=== PATIENT | female | born 1950 | race Caucasian/White ===

== ENCOUNTER → 2017-02-12 | Outpatient (CLI) | payer MEDICARE, OTHER | END | disposition home or self-care (01) | LOC: GMAB 11:41 | PROVIDERS: ATTEND Family Medicine | DX: I10 Essential (primary) hypertension (principal) ==

== ENCOUNTER → 2017-03-11 | Outpatient (CLI) | payer MEDICARE | END | disposition home or self-care (01) | LOC: GMAB 16:37 | PROVIDERS: ATTEND Family Medicine | DX: R30.0 Dysuria (principal) ==

== ENCOUNTER → 2017-03-25 | Outpatient (CLI) | payer MEDICARE, OTHER | END | disposition home or self-care (01) | LOC: GMAB 16:40 | PROVIDERS: ATTEND Family Medicine | DX: R30.0 Dysuria (principal) ==

== ENCOUNTER 2018-02-05 21:06 | Emergency (ER) | payer MEDICARE, OTHER ==
[2018-02-05] MEDS ORDERED: ALUMINUM & MAGNESIUM HYDROXIDE 30 ML UD PO ONE (21:35)
[2018-02-05] MEDS ORDERED: SODIUM CHLORIDE 0.9% 1000ML 1,000 ML IVS ONE (21:35)
[2018-02-05] MEDS ORDERED: ONDANSETRON ODT 8 MG TAB SL ONE (21:35)
[2018-02-05] MEDS ORDERED: FAMOTIDINE 20 MG TAB PO ONE (21:35)
--- NOTE | 2018-02-05 22:34 | RAD ---
EXAM DESCRIPTION: Abdomen Series CLINICAL HISTORY: n/v 2 days COMPARISON: None. FINDINGS: Single view of the chest with upright and supine views of the abdomen. The cardiomediastinal silhouette has normal size and contour. No consolidation, pneumothorax, or pleural effusion. Left chest wall postoperative changes. No free intraperineal air. Scattered loops of nondilated large or small bowel without evidence of obstruction. No definite organomegaly identified. No abnormal calcifications. No acute osseous abnormalities identified. IMPRESSION: 1. No acute pulmonary process. Nonobstructive bowel gas pattern. Electronically signed by: Tej Gutierrez 02/05/2018 10:32 PM CDT
[2018-02-05] MEDS ORDERED: CIPROFLOXACIN 500 MG TAB PO ONE (22:59)
[2018-02-05] MEDS ORDERED: cefTRIAXone SODIUM 1 GM in SODIUM CHL 0.9% 50ML MIN-BAG+ 50 ML IVPB ONE (22:59)
[2018-02-05] MEDS ORDERED: cefTRIAXone SODIUM 1 GM VIAL ONE (23:15)
[2018-02-05] MEDS ORDERED: SODIUM CHL 0.9% 50ML MIN-BAG+ 50 ML IVPB ONE (23:15)
[2018-02-05] MEDS ORDERED: PROMETHAZINE HCL 25 MG TAB PO ONE (23:23)
--- NOTE | 2018-02-05 23:28 | ED.PDOC ---
History of Present Illness - General Chief Complaint: GI Problem Time Seen by Provider: 02/05/18 21:07 Source: patient Exam Limitations: no limitations - History of Present Illness Initial Comments: The patient is 67-year-old female presenting to the emergency room secondary to 24-36 hours as nausea and vomiting as well as start of urinary symptoms of frequency and dysuria as well as some pharyngitis. had just come back from [place]. No blood or bile in the vomitus. No diarrhea. No constipation. No abdominal pain. No history of any pancreatitis or gallbladder problems. Timing/Duration: 24 hours Severity: moderate Improving Factors: nothing Worsening Factors: nothing Associated Symptoms: loss of appetite, malaise, nausea/vomiting Home Medications: Ambulatory Orders Ciprofloxacin [Cipro] 500 mg PO BID #10 tab 02/05/18 Famotidine 20 mg PO BID #30 tab 02/05/18 Ondansetron [Zofran Odt] 4 mg PO Q4H PRN #10 tab 02/05/18 Review of Systems - Review of Systems Constitutional: States: malaise EENTM: States: throat pain Respiratory: States: no symptoms reported Cardiology: States: no symptoms reported Gastrointestinal/Abdominal: States: nausea, vomiting Genitourinary: States: dysuria, frequency Musculoskeletal: States: no symptoms reported Skin: States: no symptoms reported Neurological: States: no symptoms reported Endocrine: States: no symptoms reported All other Systems: No Change from Baseline Physical Exam - Physical Exam General Appearance: Alert, Comfortable, No apparent distress Eye Exam: bilateral normal Ears, Nose, Throat: hearing grossly normal, pharyngeal erythema Neck: full range of motion, supple Respiratory: lungs clear, normal breath sounds, no respiratory distress, no accessory muscle use Cardiovascular/Chest: normal peripheral pulses, regular rate, rhythm, no edema Peripheral Pulses: radial,right: 2+, radial,left: 2+, dorsalis pedis,right: 2+, dorsalis pedis,left: 2+ Gastrointestinal/Abdominal: non tender, soft Rectal Exam: deferred Back Exam: normal inspection, no CVA tenderness, no vertebral tenderness Extremity: normal range of motion, non-tender, normal inspection, no pedal edema , no calf tenderness, normal capillary refill Neurologic: product safety consultant II-XII nml as tested, alert, normal mood/affect, oriented x 3 Skin Exam: normal color Progress - Progress Progress: 02/05/18 23:29 the patient is a 67-year-old female presenting with what appears to be a viral syndrome consisting primarily of pharyngitis and nausea and vomiting. She has received a liter of IV fluids as well as some nausea and stomach medications. She is feeling a little bit better from that standpoint. 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 She needs to keep herself hydrated and maintain a bland diet. Tylenol can be used to control any low-grade fever and help with pharyngitis discomfort. Additionally the patient does have a urinary tract infection. The urine will be cultured. She has received a dose of Rocephin and oral ciprofloxacin here tonight. She'll be placed on ciprofloxacin twice daily for 5 days. She does need a test of cure with her primary care doctor somewhere between 5 and 7 days from now. Urine culture can be followed as well there. ER warnings were given for any significant worsening. - Results/Orders Results/Orders: 02/05/18 21:35 URINE CULTURE W/COLONY COUNT Stat 02/05/18 23:00 STREP A SCREEN CULTURE Stat negativerapid test Laboratory Results - last 24 hr 02/05/18 02/05/18 21:35 23:00 Urine Color Yellow Urine Appearance Clear Urine pH 7.5 Ur Specific [place] 1.020 Urine Protein Trace Urine Glucose (UA) Negative Urine Ketones >=160 Urine Blood Trace-intact H Urine Nitrite Negative Urine Bilirubin Small H Urine Urobilinogen 1.0 Ur Leukocyte Esterase Small H Urine RBC 1-3 Urine WBC 20-30 H Ur Epithelial Cells 1-3 Urine Bacteria 2+ H Urine Mucus Moderate Group A Strep Rapid Negative cute abdominal series appears benign. Departure - Departure Clinical Impression: Viral syndrome Urinary tract infection Qualifiers: Urinary tract infection type: acute cystitis Hematuria presence: without hematuria Qualified Code(s): N30.00 - Acute cystitis without hematuria Disposition: Discharge to Home or Self Care Condition: Fair Departure Forms: ED Discharge - Pt. Copy, Patient Portal Self Enrollment Instructions: DI for Gastritis, DI for Viral Pharyngitis, DI for Acute Cystitis Diet: bland diet Activity: increase activity as tolerated Referrals: Callum Whitney MD [Primary Care Provider] - 1-2 Weeks Prescriptions: Ciprofloxacin [Cipro] 500 mg PO BID #10 tab Famotidine 20 mg PO BID #30 tab Ondansetron [Zofran Odt] 4 mg PO Q4H PRN #10 tab PRN Reason: Vomiting Home Medications: Ambulatory Orders Ciprofloxacin [Cipro] 500 mg PO BID #10 tab 02/05/18 Famotidine 20 mg PO BID #30 tab 02/05/18 Ondansetron [Zofran Odt] 4 mg PO Q4H PRN #10 tab 02/05/18 Additional Instructions: the patient is a 67-year-old female presenting with what appears to be a viral syndrome consisting primarily of pharyngitis and nausea and vomiting. She has received a liter of IV fluids as well as some nausea and stomach medications. She is feeling a little bit better from that standpoint. 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 She needs to keep herself hydrated and maintain a bland diet. Tylenol can be used to control any low-grade fever and help with pharyngitis discomfort. Additionally the patient does have a urinary tract infection. The urine will be cultured. She has received a dose of Rocephin and oral ciprofloxacin here tonight. She'll be placed on ciprofloxacin twice daily for 5 days. She does need a test of cure with her primary care doctor somewhere between 5 and 7 days from now. Urine culture can be followed as well there. ER warnings were given for any significant worsening.
[2018-02-06 00:04] VITALS: BP 140/69; TEMP 98.8; O2SAT 100
== END 2018-02-05 23:58 | disposition home or self-care (01) ==
LOC: ER 21:06
DX: N30.00 Acute cystitis without hematuria (principal); B34.9 Viral infection, unspecified
CPT/HCPCS: 74019; 81001; 87070; 87086; 87880; J0696; J7030; J7050; Q0169

== ENCOUNTER → 2018-02-13 | Outpatient (CLI) | payer MEDICARE, OTHER | LOC: GMAB 10:50 | PROVIDERS: ATTEND Family Medicine | DX: I10 Essential (primary) hypertension (principal) ==

== ENCOUNTER → 2018-03-11 | Outpatient (CLI) | payer MEDICARE, OTHER ==
--- NOTE | 2018-03-12 08:30 | US ---
THYROID ULTRASOUND CLINICAL INFORMATION: Thyroid nodule TECHNIQUE: Real-time ultrasonography was obtained of the thyroid gland and outbound sales representative images were recorded. COMPARISON: None FINDINGS: Thyroid size: Right lobe of the thyroid gland measures 4.3 x 1.7 x 1.2 cm. Left lobe of the thyroid gland measures 4.1 x 0.9 x 1.4 cm. Thyroid isthmus measures 0.3 cm. Texture: Relatively homogenous. Estimated total number of nodules >/=1 cm: 1 Number of spongiform nodules >/=2 cm not described below (TR1): 0 Number of mixed cystic and solid nodules >/=1.5 cm not described below (TR2): 0 Nodule #: #: 1: Maximum size: 1.0 cm; All dimensions 1.0 x 0.7 x 0.6 cm Location: right; mid Composition: solid/almost completely solid (2) Echogenicity: hypoechoic (2) Shape: not [id number] (0) Margins: smooth (0) Echogenic foci: none (0) ACR TI-RADS total points: 4. ACR TI-RADS risk category: TR4 (4-6 points) ACR TI-RADS recommendation: Follow-up ultrasound in 1 year Nodule #: #: 2: Maximum size: 0.6 cm; All dimensions 0.6 x 0.3 x 0.5 cm Location: right; upper Composition: solid/almost completely solid (2) Echogenicity: hypoechoic (2) Shape: not [id number] (0) Margins: smooth (0) Echogenic foci: none (0) ACR TI-RADS total points: 4. ACR TI-RADS risk category: TR4 (4-6 points) ACR TI-RADS recommendation: No further follow-up Nodule #: #: 3: Maximum size: 0.8 cm; All dimensions 0.8 x 0.5 x 0.8 cm Location: left; upper Composition: solid/almost completely solid (2) Echogenicity: hypoechoic (2) Shape: not llurbe-buii-wrdl (0) Margins: smooth (0) Echogenic foci: none (0) Inspissated colloid noted. ACR TI-RADS total points: 4. ACR TI-RADS risk category: TR4 (4-6 points) ACR TI-RADS recommendation: No further follow-up IMPRESSION: 1. Multinodular thyroid gland. Follow-up ultrasound in one year to reevaluate the nodule in the mid aspect of the right lobe is recommended. ACR TI-RADS recommendations: TR5 (>/=7 points) - FNA if >/=1 cm, follow-up if 0.5 - 0.9 cm every year for 5 years TR4 (4-6 points) - FNA if >/=1.5 cm, follow-up if 1 - 1.4 cm in 1, 2, 3 and 5 years TR3 (3 points) - FNA if >/=2.5 cm, follow -up if 1.5 - 2.4 cm in 1, 3 and 5 years TR2 (2 points) and TR1 (0 points) - No FNA or follow-up * ACR TI-RADS recommends that no more than two nodules with the highest ACR TI-RADS total point should be biopsied and no more than four nodules should be followed. Electronically signed by: Ralph Jimenez MD 03/12/2018 8:28 AM CDT
== END ==
LOC: US 14:00
PROVIDERS: ATTEND Family Medicine
DX: E04.1 Nontoxic single thyroid nodule (principal)

== ENCOUNTER → 2018-03-24 | Outpatient (CLI) | payer MEDICARE, OTHER | LOC: GMAE 14:54 | PROVIDERS: ATTEND Family Medicine | DX: E04.1 Nontoxic single thyroid nodule (principal) ==

== ENCOUNTER 2018-09-12 05:40 | Emergency (ER) | payer MEDICARE, OTHER ==
[2018-09-12 06:03] VITALS: TEMP 99.4
[2018-09-12] MEDS ORDERED: SODIUM CHLORIDE 0.9% 1000ML 1,000 ML IVS ONE (06:15)
--- NOTE | 2018-09-12 06:18 | ED.PDOC ---
History of Present Illness - General Source: patient Exam Limitations: no limitations - History of Present Illness Initial Comments: the patient is a 7-year-old female presenting to emergency room after a syncopal episode this morning after she got up out of bed. She apparently passed out and did hit her head on the floor. No laceration. She does not remember passing out or the fall. She had been feeling poorly prior for about 3 days. Questionable fevers. Symptoms started with a sore throat and a little bit of a runny nose. She has had some body aches. She did have some nausea prior but no vomiting prior to the syncopal episode.after the syncopal episode she threw up 3 or 4 times. No real abdominal pain currently. No chest pain. No palpitations. No history of any congestive heart failure. No history of recurrent syncopal episodes. She had breast cancer more than 13 years ago. Timing/Duration: unsure Severity: moderate Improving Factors: nothing Worsening Factors: movement Associated Symptoms: headaches, loss of appetite, malaise, nausea/vomiting, syncope, weakness <Nick Oquendo L - Last Filed: 09/12/18 06:15> <Tomas Ash - Last Filed: 09/12/18 10:58> - General Chief Complaint: Headache Stated Complaint: fell and hit head Time Seen by Provider: 09/12/18 06:04 - History of Present Illness Allergies/Adverse Reactions: Allergies NO KNOWN ALLERGY Allergy (Verified 09/12/18 06:17) Home Medications: Ambulatory Orders Ciprofloxacin [Cipro] 500 mg PO BID #10 tab 02/05/18 Famotidine 20 mg PO BID #30 tab 02/05/18 Ondansetron [Zofran Odt] 4 mg PO Q4H PRN #10 tab 02/05/18 Acetamin W/Cod #3 Tab [Tylenol w/CODEINE #3] 1 ea PO Q4HR PRN #20 tab 09/12/18 Cefuroxime Axetil [Ceftin] 500 mg PO Q12H 10 Days #20 tablet 09/12/18 Oseltamivir Capsule [Tamiflu] 75 mg PO BID 5 Days #10 capsule 09/12/18 Review of Systems - Review of Systems Constitutional: States: malaise, weakness EENTM: States: nose congestion, throat pain Respiratory: States: no symptoms reported Cardiology: States: syncope Gastrointestinal/Abdominal: States: nausea, vomiting Genitourinary: States: no symptoms reported Musculoskeletal: States: no symptoms reported Skin: States: see HPI Neurological: States: no symptoms reported Endocrine: States: no symptoms reported All other Systems: No Change from Baseline <Arnaud Oquendoy Divya - Last Filed: 09/12/18 06:15> Past Medical History (General) - Patient Medical History Hx Seizures: No Hx Stroke: No Hx Dementia: No Hx Congestive Heart Failure: No Hx Pacemaker: No Hx Hypertension: Yes Hx Thyroid Disease: No Hx Diabetes: No Hx Gastroesophageal Reflux: No Hx Renal Disease: No Hx Cancer: Yes - breast Hx of HIV: No Hx MRSA: No Surgical History: cancer surgery, other - Vaccination History Hx Tetanus, Diphtheria Vaccination: Yes Hx Influenza Vaccination: Yes Hx Pneumococcal Vaccination: Yes - Social History Hx Tobacco Use: Yes - social Hx Alcohol Use: No - Female History Patient is a Female of Child Bearing Age (10 -59 yrs old): No Patient : No <Nick Oquendo - Last Filed: 09/12/18 06:15> Family Medical History - Family History Grandparents Hx Family Diabetes: Yes <JereNick - Last Filed: 09/12/18 06:15> Physical Exam - Physical Exam General Appearance: Alert, Comfortable, No apparent distress Eye Exam: bilateral normal Ears, Nose, Throat: hearing grossly normal, nasal congestion, pharyngeal erythema Neck: full range of motion, supple Respiratory: lungs clear, normal breath sounds, no respiratory distress, no accessory muscle use Cardiovascular/Chest: normal peripheral pulses, regular rate, rhythm, no edema Peripheral Pulses: radial,right: 2+, radial,left: 2+, dorsalis pedis,right: 2+, dorsalis pedis,left: 2+ Gastrointestinal/Abdominal: non tender, soft Rectal Exam: deferred Back Exam: no CVA tenderness, no vertebral tenderness Extremity: normal range of motion, non-tender, normal inspection, no pedal edema Neurologic: scrap iron cutter II-XII nml as tested, alert, normal mood/affect, oriented x 3 Skin Exam: normal color - scalp hematoma Comments: Vital Signs - 24 hr 09/12/18 05:47 Temperature 99.4 F Pulse Rate [ 94 H left] Respiratory 18 Rate Blood Pressure 122/66 [left] O2 Sat by Pulse 94 L Oximetry <Nick Oquendo - Last Filed: 09/12/18 06:15> Progress - Progress Progress: 09/12/18 06:19 the patient is 67-year-old female presenting to the emergency room due to syncope from an uncertain source. The patient had subsequent nausea and vomiting which may or may not be related to the head trauma from the fall. Laboratory work is being sent off. She will receive an acute abdominal series as well as a head CT. She has been placed on telemetry monitoring and a set of tilt vital signs are being obtained. She will receive a liter of IV fluids. She is being tested for strep and flu. Dr. Ash to assume care. <Nick Oquendo Divya - Last Filed: 09/12/18 06:15> - Results/Orders Results/Orders: 09/12/18 06:14 Telemetry .CONTINUOUS Vital Signs-Tilt PRN 09/12/18 06:15 EKG STAT 09/12/18 07:05 STREP A SCREEN CULTURE Stat 09/13/18 06:15 EKG STAT Laboratory Results - last 24 hr 09/12/18 09/12/18 09/12/18 06:20 06:20 06:20 WBC 10.2 RBC 4.58 Hgb 13.9 Hct 41.6 MCV 90.7 MCH 30.2 MCHC 33.3 RDW 13.4 Plt Count 181 MPV 9.5 Absolute Neuts (auto) 8.70 H Absolute Lymphs (auto) 0.80 L Absolute Monos (auto) 0.60 Absolute Eos (auto) 0.00 Absolute Basos (auto) 0.10 Neutrophils % 85.0 H Lymphocytes % 7.9 L Monocytes % 5.7 Eosinophils % 0.2 L Basophils % 1.2 D-Dimer, Quantitative Sodium 139 Potassium 4.3 Chloride 109 Carbon Dioxide 22 Anion Gap 12.3 BUN 18 Creatinine 0.74 BUN/Creatinine Ratio 24.3 H Random Glucose 126 H Serum Osmolality 281.0 Lactic Acid 1.8 Calcium 8.6 Magnesium 2.0 Total Bilirubin 0.5 AST 28 ALT 23 Alkaline Phosphatase 53 Creatine Kinase 45 CK-MB (CK-2) 0.6 CK-MB (CK-2) % Not Reportable Troponin I < 0.02 B-Natriuretic Peptide 14.1 Serum Total Protein 6.8 Albumin 3.9 Globulin 2.9 Albumin/Globulin Ratio 1.3 Lipase 35 TSH 1.92 Urine Color Urine Appearance Urine pH Ur Specific [place] Urine Protein Urine Glucose (UA) Urine Ketones Urine Blood Urine Nitrite Urine Bilirubin Urine Urobilinogen Ur Leukocyte Esterase Urine RBC Urine WBC Ur Epithelial Cells Urine Bacteria Hyaline Casts Group A Strep Rapid 09/12/18 09/12/18 09/12/18 06:50 07:05 10:30 WBC RBC Hgb Hct MCV MCH MCHC RDW Plt Count MPV Absolute Neuts (auto) Absolute Lymphs (auto) Absolute Monos (auto) Absolute Eos (auto) Absolute Basos (auto) Neutrophils % Lymphocytes % Monocytes % Eosinophils % Basophils % D-Dimer, Quantitative 12.54 H* Sodium Potassium Chloride Carbon Dioxide Anion Gap BUN Creatinine BUN/Creatinine Ratio Random Glucose Serum Osmolality Lactic Acid Calcium Magnesium Total Bilirubin AST ALT Alkaline Phosphatase Creatine Kinase CK-MB (CK-2) CK-MB (CK-2) % Troponin I B-Natriuretic Peptide Serum Total Protein Albumin Globulin Albumin/Globulin Ratio Lipase TSH Urine Color Yellow Urine Appearance Clear Urine pH 7.0 Ur Specific [place] 1.015 Urine Protein Negative Urine Glucose (UA) Negative Urine Ketones Negative Urine Blood Negative Urine Nitrite Negative Urine Bilirubin Negative Urine Urobilinogen 0.2 Ur Leukocyte Esterase Negative Urine RBC 1-3 Urine WBC 1-3 Ur Epithelial Cells 1-3 Urine Bacteria Rare Hyaline Casts 1-3 Group A Strep Rapid Negative Discuss all test result findings with patient in the presence of her . - EKG/XRAY/CT EKG: Sinus, no ST T wave changes Comments: HR-86 <Tomas Ash - Last Filed: 09/12/18 10:58> Departure <Nick Oquendo L - Last Filed: 09/12/18 06:15> - Departure Time of Disposition: 10:51 <Tomas Ash - Last Filed: 09/12/18 10:58> - Departure Clinical Impression: Influenza A, D-dimer, elevated, History of left breast cancer Syncope Qualifiers: Syncope type: unspecified Qualified Code(s): R55 - Syncope and collapse Concussion Qualifiers: Encounter type: initial encounter Loss of consciousness presence/duration: with LOC of 30 min or less Qualified Code(s): S06.0X1A - Concussion with loss of consciousness of 30 minutes or less, initial encounter Maxillary sinusitis, acute Qualifiers: Recurrence: not specified as recurrent Qualified Code(s): J01.00 - Acute maxillary sinusitis, unspecified Disposition: Discharge to Home or Self Care Condition: Fair Departure Forms: ED Discharge - Pt. Copy, Patient Portal Self Enrollment Instructions: DI for Headache, Syncope (Fainting), Syncope (Fainting) (DC) Referrals: Callum Whitney MD [Primary Care Provider] - 1-2 Weeks Prescriptions: Acetamin W/Cod #3 Tab [Tylenol w/CODEINE #3] 1 ea PO Q4HR PRN #20 tab PRN Reason: Pain Cefuroxime Axetil [Ceftin] 500 mg PO Q12H 10 Days #20 tablet Oseltamivir Capsule [Tamiflu] 75 mg PO BID 5 Days #10 capsule Home Medications: Ambulatory Orders Ciprofloxacin [Cipro] 500 mg PO BID #10 tab 02/05/18 Famotidine 20 mg PO BID #30 tab 02/05/18 Ondansetron [Zofran Odt] 4 mg PO Q4H PRN #10 tab 02/05/18 Acetamin W/Cod #3 Tab [Tylenol w/CODEINE #3] 1 ea PO Q4HR PRN #20 tab 09/12/18 Cefuroxime Axetil [Ceftin] 500 mg PO Q12H 10 Days #20 tablet 09/12/18 Oseltamivir Capsule [Tamiflu] 75 mg PO BID 5 Days #10 capsule 09/12/18 Additional Instructions: follow up with breast cancer surgeon who performed your breast cancer surgery;Also make appointment with your primary Md for recheck;Return to emergency room as needed
--- NOTE | 2018-09-12 07:07 | CT ---
EXAM DESCRIPTION: Head CLINICAL HISTORY: 67 years, Female, syncope COMPARISON: None TECHNIQUE: Head CT was performed without IV contrast. This exam was performed according to our departmental dose-optimization program, which includes automated exposure control, adjustment of the mA and/or kV according to patient size and/or use of iterative reconstruction technique. FINDINGS: No acute intracranial hemorrhage. No midline shift or other mass effect. The ventricles and basilar cisterns are well maintained. No posterior fossa lesion. Mild chronic ischemic changes are present in the periventricular white matter without cortical infarct or intracranial mass. Prominent soft tissue swelling and cephalohematoma over the right frontoparietal region superiorly near the calvarial apex. No calvarial fracture. Small amount of probably appearing fluid in the right maxillary sinus. Visual paranasal sinuses and orbits are otherwise unremarkable. IMPRESSION: Cephalohematoma near the calvarial apex right of midline without calvarial fracture or acute intracranial abnormality. Right maxillary sinusitis, possibly acute. Electronically signed by: Tyshawn Cobb MD 09/12/2018 7:06 AM [employer]
--- NOTE | 2018-09-12 09:14 | US ---
EXAM DESCRIPTION: Carotid Duplex: ULTRASOUND. CLINICAL HISTORY: 67 years Female syncope COMPARISON: CT scan of the head earlier today. TECHNIQUE: Transcutaneous scanning utilizing mccarthy-scale and Doppler modes to evaluate the bilateral carotid systems and vertebral arteries. Percentage of diameter of stenosis or no stenosis recorded will be based upon NASCET criteria. FINDINGS: Peak systolic/end diastolic (CM-Sec) CCA Right 92/25 Left 107/23. ICA Right proximal 70/22, mid 81/29. Left proximal 78/28, Distal 90/29. Vertebral Right 58/11 Left 69/12. ECA (PS Only) Right 94 left 97. ICA/CCA peak systolic ratio: Right 0.9 Left 0.8 ICA/CCA end diastolic ratio: Right 1.1 Left 1.3 Vertebral arteries: antegrade flow. Comments Comments: Minimal atherosclerotic plaque bilaterally. Spectral broadening bilateral ICAs. IMPRESSION: 1. Doppler evaluation of the bilateral carotid systems and vertebral arteries shows no hemodynamically significant stenoses. 2. No significant amount of plaque seen in the carotid arteries bilaterally. Bilateral vertebral arteries showed antegrade-cephalad flow. Electronically signed by: Moises Mccann MD 09/12/2018 9:12 AM [facility]
--- NOTE | 2018-09-12 10:34 | CT ---
EXAM DESCRIPTION: CTA Chest: Computed Tomography. CLINICAL HISTORY: syncope/elevated d dimer COMPARISON: CT scan of the head and ultrasound Doppler of the carotids on this visit. TECHNIQUE: Spiral-axial scans at 2.5 x 2.5 mm intervals through the pulmonary arteries and chest after bolus infusion of IV contrast. Lung algorithm _1.25-mm axial reconstructions. Coronal and sagittal 2.0 Mm reconstructions. 10.0 mm PE oblique 3-D reformatted images. No adverse reactions. Total Exam DLP: 473.75 mGy-cm. This exam was performed according to our departmental CT dose-optimization program which includes automated exposure control, adjustment of the mA and/or kV according to patient size and/or use of iterative reconstruction technique; to reduce radiation dose to as low as reasonably achievable (ALARA). FINDINGS: Heart and great vessels: The pulmonary arterial system is well demonstrated with contrast material from the main pulmonary artery to the bilateral subsegmental pulmonary artery branches, with no filling defects. The distal pulmonary artery branches bilaterally are symmetric. No significant vessel calcification. Heart size borderline enlarged. Lungs and airways: Posterior pleural-based bulla and blebs abutting the superior segments of the upper lobes. Posterior dependent atelectasis abutting the subpleural lower lobes bilaterally. Minimal bilateral perihilar peribronchial wall thickening. No focal infiltrates, abnormal nodules, or masses bilaterally. Pleura and pleural spaces: Minimal thickening. No effusion or pneumothorax bilaterally. Mediastinum and hoang: Multiple posterior and inferior mediastinal lymph nodes, and bilateral hilar nodes, with short axis ranging from 7 mm to 1.3 cm. No calcifications. Soft tissues chest wall and base of neck: Mass versus scarring with spiculated margins and surgical clips which may represent a biopsy site in the posterior inferior left breast abutting the chest wall. Minimal loss of breast tissue. Multiple axillary surgical clips. No lymph node enlargement in the right axilla. Upper abdomen: No free fluid or free air included peritoneal.. Adrenal glands and spleen normal size. Subcapsular cyst in the liver 3.7 cm on the right and 1.7 cm on the left. Small sliding hiatal hernia. Osseous structures: Minimal spondylosis in the included thoracic spine. No lytic or blastic lesions. Minimal arthrosis in the bilateral glenohumeral joints. IMPRESSION: 1. CTA of the thorax showing no evidence for acute pulmonary embolus. 2. Enlarged lymph nodes in the mediastinum and hilum. This can be result of old versus acute inflammatory or infectious disease, or primary malignancy or metastatic disease. Minimal emphysematous changes in the subpleural lungs. No mass or infiltrate or effusion. Previous biopsy left breast with left axillary lymph node dissection. History of the left breast cancer? Consider nonemergent digital mammography bilaterally. 3. Hepatic cysts. 4. If neurological symptoms persist, and there is history of previous breast cancer, consider nonemergent MRI scan of the brain without and with gadolinium IV contrast. Electronically signed by: Moises Mccann MD 09/12/2018 10:32 AM [facility]
[2018-09-12 11:20] VITALS: BP 128/70; O2SAT 98
== END 2018-09-12 11:20 | disposition home or self-care (01) ==
LOC: ER 05:40
DX: S06.0X1A Concussion with loss of consciousness of 30 minutes or less, initial encounter (principal); R55 Syncope and collapse; J01.00 Acute maxillary sinusitis, unspecified; J10.1 Influenza due to other identified influenza virus with other respiratory manifestations; R79.89 Other specified abnormal findings of blood chemistry; S00.93XA Contusion of unspecified part of head, initial encounter; R11.2 Nausea with vomiting, unspecified; I10 Essential (primary) hypertension; Z87.891 Personal history of nicotine dependence; Z85.3 Personal history of malignant neoplasm of breast; Z79.899 Other long term (current) drug therapy; W18.39XA Other fall on same level, initial encounter; Y92.9 Unspecified place or not applicable
CPT/HCPCS: 36415; 70450; 71275; 80053; 81001; 82550; 82553; 83605; 83690; 83735; 83880; 84443; 84484; 85025; 85379; 87070; 87502; 87880; 93005; 93880; J7030

== ENCOUNTER 2020-08-22 09:28 | Emergency (ER) | payer MEDICARE, OTHER ==
--- NOTE | 2020-08-22 10:44 | ED.PDOC ---
History of Present Illness - General Chief Complaint: Skin/Abrasion/Tear Stated Complaint: Knot to posterior, lateral knee Time Seen by Provider: 08/22/20 10:41 Source: patient - History of Present Illness Initial Comments: 69-year-old female who presents with chief complaint of pain and redness to the left lower extremity. Onset of symptoms yesterday, no reported hx of injury or trauma. Patient states she first noted a small hard and painful knot to the outside of the left leg just below the level of the knee. Last night her summer an marker the perimeter of the knot and redness. This morning it seems that the redness and warmth were slightly worse from last night. Patient states she was unable to get in with her PCP so she came to the ER. Currently reports no pain at rest but does report mild sharp pain with palpation of the area without radiation. She has been taking some Advil at home with good control of the pain. She was worried about potential blood clot or infection so she wanted to get checked out. She denies any fevers, chills, chest pain, shortness of breath, other systemic symptoms. She has no reported history of blood clots or skin infections. She does have remote history of breast cancer treated with chemotherapy in 2003 but has been in remission. Allergies/Adverse Reactions: Allergies NO KNOWN ALLERGY Allergy (Verified 08/22/20 10:01) Home Medications: Ambulatory Orders Alendronate Sodium [Fosamax] 70 mg PO DAILY 08/22/20 Review of Systems - Review of Systems Review of Systems: 08/22/20 10:44 as per HPI All other Systems: Reviewed and Negative Past Medical History (General) - Patient Medical History Hx Seizures: No Hx Stroke: No Hx Dementia: No Hx of COPD: No Hx Cardiac Disorders: No Hx Congestive Heart Failure: No Hx Pacemaker: No Hx Hypertension: No Hx Thyroid Disease: No Hx Diabetes: No Hx Gastroesophageal Reflux: No Hx Renal Disease: No Hx Cancer: Yes - Breast Hx of HIV: No Hx MRSA: No Surgical History: other - Vaccination History Hx Tetanus, Diphtheria Vaccination: Yes Hx Influenza Vaccination: Yes Hx Pneumococcal Vaccination: Yes - Social History Hx Tobacco Use: No Hx Alcohol Use: Yes Hx Substance Use: No Hx Substance Use Treatment: No Hx Depression: No - Female History Patient is a Female of Child Bearing Age (10 -59 yrs old): No Patient : No Family Medical History - Family History Grandparents Family History: Unknown Hx Family Diabetes: Yes Physical Exam - Physical Exam General Appearance: Alert, Comfortable, No apparent distress Eye Exam: bilateral normal Ears, Nose, Throat: normal ENT inspection Neck: non-tender, full range of motion Respiratory: lungs clear, normal breath sounds, no respiratory distress, no accessory muscle use Cardiovascular/Chest: normal peripheral pulses, regular rate, rhythm, no edema, no gallop, no JVD, no murmur Peripheral Pulses: radial,right: 2+, radial,left: 2+ Gastrointestinal/Abdominal: non tender, soft Back Exam: normal inspection Extremity: no pedal edema - Silver sign neg BL, calves w/o swelling, equal size BL, other - to the lateral LLE just inferior to the knee there is an approx 3x3 cm area of mild skin redness and induration with mild ttp, no noted fluctuance or pointing, slight warmth 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 Consider also abscess, cellulitis, DVT, other -pt stable, NAD, vitals wnl, no hx of clots -will obtain formal doppler venous US LLE 08/22/20 11:57 -Doppler venous US LLE reveals varicose veins with superificial thrombus at Left lateral knee location. No evidence of DVT. -Discussed findings with pt as well as treatment with supportive care at home. F/u with PCP 1-2 weeks. -Dc to home in good condition, return warnings discussed Derek Shoemaker MD Billing #[id number] Departure - Departure Clinical Impression: Acute superficial venous thrombosis of left lower extremity Varicose veins of lower extremity Qualifiers: Varicose vein complication: pain Laterality: left Qualified Code(s): I83.812 - Varicose veins of left lower extremity with pain Time of Disposition: 11:56 Disposition: Discharge to Home or Self Care Condition: Good Departure Forms: ED Discharge - Pt. Copy, Patient Portal Self Enrollment Instructions: DI for Abrasion, Phlebitis (DC), Varicose Veins (DC) Diet: resume usual diet Activity: increase activity as tolerated Referrals: MYRNA GUADALUPE MD [Primary Care Provider] - 1-2 Weeks Home Medications: Ambulatory Orders Alendronate Sodium [Fosamax] 70 mg PO DAILY 08/22/20 Additional Instructions: You may continue applying/alternating warm/cool compresses to the affected area as you find they help. Continue OTC medications for pain such as Advil and T ylenol as needed as well. Return if the area develops rapidly worsening or severe redness, pain, swelling, or if you develop other concerning symptoms such as chest pain, shortness of breath, fevers, chills, etc... Follow up with your primary care doctor is recommended in next 1-2 weeks for repeat evaluation or sooner as needed.
--- NOTE | 2020-08-22 11:50 | US ---
EXAM DESCRIPTION: Venous,Lower Extremity LT: ULTRASOUND. CLINICAL HISTORY: pain, redness to LLE COMPARISON: None Available. TECHNIQUE: Keyes-scale and doppler sonographic evaluation of the deep venous system of the left lower extremity. FINDINGS: Doppler evaluation shows normal color flow and normal phasicity and augmentation of the left common femoral vein, left femoral vein, popliteal vein, left greater saphenous vein, junction with the CFV. Also normal color flow and normal phasicity and augmentation of the peroneal, and posterior tibial vein. The left lower extremity deep veins were completely compressible; normal occlusion with transducer pressure. Keyes-scale survey showed no echogenic thrombus within these veins. Probable mass lateral left knee corresponds to subcutaneous varicose veins containing echogenic thrombus and noncompressible with the transducer. Reduced Doppler venous color and waveforms. IMPRESSION: 1. Duplex ultrasound evaluation of the left lower extremity deep venous system showing no evidence of thrombosis. 2. Superficial thrombosis in subcutaneous varicose vein on the lateral aspect of the left knee. Electronically signed by: Moises Mccann MD 08/22/2020 11:48 AM [facility]
[2020-08-22 12:07] VITALS: BP 147/76; TEMP 97.5; O2SAT 99
== END 2020-08-22 12:00 | disposition home or self-care (01) ==
LOC: ER 09:28
DX: I82.812 Embolism and thrombosis of superficial veins of left lower extremity (principal); I83.812 Varicose veins of left lower extremity with pain; Z85.3 Personal history of malignant neoplasm of breast; Z92.21 Personal history of antineoplastic chemotherapy